=== PATIENT | male | born 1980 | race Caucasian/White ===

== ENCOUNTER 2019-12-31 02:12 | Emergency (ER) | payer MEDICAID ==
[~2019-12-31] VITALS: Ht 167.6 cm; Wt 76.0 kg
[2019-12-31] MEDS ORDERED: IBUPROFEN 600MG TABLET PO ONE (03:00)
[2019-12-31 03:04] VITALS: BP 130/85
== END 2019-12-31 03:12 | disposition home or self-care (01) ==
LOC: ER 02:12
DX: J02.9 Acute pharyngitis, unspecified (principal); R03.0 Elevated blood-pressure reading, without diagnosis of hypertension
CPT/HCPCS: 99282